=== PATIENT | male | born 1960 | race Caucasian/White ===

== ENCOUNTER 2020-08-14 14:51 | Emergency (ER) | payer OTHER ==
[~2020-08-14] VITALS: Ht 182.9 cm; Wt 120.2 kg
[~2020-08-14 14:51] MED LIST: ASPI325 PO; GLIM2 PO; KRILL OIL 1,001 EAC1; LISI5 PO; METF500 PO; MULVITMIND PO; OSTERA TABLET1 EACH PO; OXYACE5T PO
[2020-08-14] MEDS ORDERED: TRULICITY1.5 MG/0.1 SC (15:16)
[2020-08-14] MEDS ORDERED: Norco 7.5-3251 EACH PO (16:46)
[2020-08-14] MEDS ORDERED: IBUP800 PO (16:46)
== END 2020-08-14 17:16 | disposition home or self-care (01) ==
LOC: ER 14:51
DX: S09.90XA Unspecified injury of head, initial encounter (principal); S16.1XXA Strain of muscle, fascia and tendon at neck level, initial encounter; E11.9 Type 2 diabetes mellitus without complications; I10 Essential (primary) hypertension; M54.6 Pain in thoracic spine; Z79.84 Long term (current) use of oral hypoglycemic drugs; Z79.899 Other long term (current) drug therapy; Z87.891 Personal history of nicotine dependence; W31.89XA Contact with other specified machinery, initial encounter
CPT/HCPCS: 70450; 72070; 72125; 99284-25; A9270

== ENCOUNTER 2021-01-01 10:52 | Day surgery (SDC) | payer OTHER ==
[~2021-01-01] VITALS: Ht 184 cm; Wt 122.6 kg
[~2021-01-01 10:52] MED LIST changes: +IBUP800 PO; +Norco 7.5-3251 EACH PO; +TRULICITY1.5 MG/0.1 SC
--- NOTE | 2021-01-01 12:52 | NUR ---
Ambulatory in Day Surgery History, Chart, Medications and Allergies reviewed before start of procedure.Patient confirms NPO status and agrees with scheduled surgery. Patient reports completing Chlorhexadine shower X2 prior to admission to hospital.
--- NOTE | 2021-01-01 18:53 | NUR ---
SHIFT SUMMARY PT HAD A HEAVY SPINAL & HASN'T BEEN ABLE TO GET OOB AT THIS POINT. PLEASANT COOPERATIVE, TOLERATING DIET, STRAIGHT CATH DONE IN PACU, DENIES PAIN.
[2021-01-02 04:55] LABS: BASOPHILS ABSOLUTE AUTO 0.01 K/mm3 (0.00-0.23); BASOPHILS PERCENT AUTO 0 % (0-2); EOSINOPHILS PERCENT AUTO 0 % (0-6); Hematocrit 39.6 % (37.0-53.0); Hemoglobin 13.9 g/dL (13.5-17.5); IMMATURE GRAN ABSOLUTE AUTO 0.03 K/mm3 (0.00-0.10); IMMATURE GRAN PERCENT AUTO 0 % (0-1); LYMPHOCYTES ABSOLUTE AUTO 1.47 K/mm3 (0.84-5.20); LYMPHOCYTES PERCENT AUTO 13 % (21-46); MONOCYTES ABSOLUTE AUTO 0.44 K/mm3 (0.16-1.47); MONOCYTES PERCENT AUTO 4 % (4-13); Mean Corpuscular HGB 31.7 pg (26.0-34.0); Mean Corpuscular HGB Conc 35.1 g/dL (31.5-36.5); Mean Corpuscular Volume 90 fL (80-100); Mean Platelet Volume 9.7 fL (9.1-12.4); NEUTROPHILS ABSOLUTE AUTO 9.67 K/mm3 (1.96-9.15); NEUTROPHILS PERCENT AUTO 83 % (41-73); Platelet Count 237 K/mm3 (150-400); RDW Coefficient Variation 12.4 % (11.7-14.2); RDW Standard Deviation 40.7 fL (35.1-46.3); Red Blood Cell Count 4.38 M/mm3 (4.30-5.90); White Blood Cell Count 11.62 K/mm3 (4.00-11.30)
[2021-01-02 05:14] LABS: Anion Gap 9 mmol/L (6-16); Blood Urea Nitrogen 24 mg/dL (8-24); Bun/Creatinine Ratio 28.1 (12.0-20.0); CO2, Blood 23 mmol/L (21-32); Calcium, Blood 9.3 mg/dL (8.5-10.1); Chloride, Blood 101 mmol/L (98-108); Creatinine, Blood 0.86 mg/dL (0.60-1.20); Glomerular Filtration Rate >60 (60-); Glucose, Blood 208 mg/dL (70-99); Potassium, Blood 4.5 mmol/L (3.5-5.5); Sodium, Blood 133 mmol/L (136-145)
[2021-01-02] MEDS ORDERED: Percocet 5-3251 EACH PO (10:22)
[2021-01-02] MEDS ORDERED: ASPI81CH PO (10:22)
--- NOTE | 2021-01-02 11:30 | NUR ---
DISCHARGE PT HAS CLEARED THERAPY. PAIN WELL CONTROLLED. EATING, DRINKING, & VOIDING WELL. DRSGS, SCRIPT, & POLAR PACK SENT w/ PT. ESCORTED OUT VIA W/C. STRESSED IMPORTANCE OF SLOWING DOWN & USING WALKER PT IS SLIGHTLY IMPULSIVE. STATES UNDERSTANDING.
== END 2021-01-02 11:35 | disposition home or self-care (01) ==
LOC: ORSCMMR 10:52 → ORD 12:30 → SURS 15:48 → ORSCMMR 01-02 11:35
PROVIDERS: Orthopaedic Surgery
PROC: 8E0Y0CZ Robotic Assisted Procedure of Lower Extremity, Open Approach (ICD-10-PCS; principal; 2021-01-01 12:30)
PROC: 0SRC0JA Replacement of Right Knee Joint with Synthetic Substitute, Uncemented, Open Approach (ICD-10-PCS; principal; 2021-01-01 12:30)
DX: M17.11 Unilateral primary osteoarthritis, right knee (principal); I10 Essential (primary) hypertension; Z87.891 Personal history of nicotine dependence; E11.9 Type 2 diabetes mellitus without complications; E66.01 Morbid (severe) obesity due to excess calories; Z68.36 Body mass index [BMI] 36.0-36.9, adult; Z79.84 Long term (current) use of oral hypoglycemic drugs; Z79.899 Other long term (current) drug therapy
CPT/HCPCS: 27447; S2900; 36415; 73560-RT; 80048; 82947; 85025; 90686; 97110; 97116; 97162; 97530; A9270; C1776; J0171; J0690; J0735; J1100; J1815; J1885; J2250; J2405; J2704; J2795; J3010; J7120